=== PATIENT | female | born 1975 | race Hispanic/Latino ===

== ENCOUNTER → 2019-08-21 | Outpatient (CLI) | payer BC | END | disposition home or self-care (01) | LOC: RAH 08:02 | PROVIDERS: ATTEND Internal Medicine | DX: M47.26 Other spondylosis with radiculopathy, lumbar region (principal); M51.16 Intervertebral disc disorders with radiculopathy, lumbar region | CPT/HCPCS: 72148 ==

== ENCOUNTER → 2020-01-21 | Outpatient (CLI) | payer BC | END | disposition home or self-care (01) | LOC: RAH 14:32 | PROVIDERS: ATTEND Internal Medicine | DX: J34.1 Cyst and mucocele of nose and nasal sinus (principal); J01.90 Acute sinusitis, unspecified; J30.9 Allergic rhinitis, unspecified; J32.4 Chronic pansinusitis; J33.9 Nasal polyp, unspecified | CPT/HCPCS: 70486 ==